=== PATIENT | male | born 1935 | race Caucasian/White ===

== ENCOUNTER 2018-05-13 09:08 | Emergency (ER) | payer OTHER ==
[~2018-05-13] VITALS: Ht 182.9 cm; Wt 91.5 kg
[2018-05-13 09:11] VITALS: Ht 182.9 cm; Wt 91.5 kg
[2018-05-13] MEDS ORDERED: SOD CHLORIDE 0.9% 1,000 ML IV STA (09:27)
[2018-05-13] MEDS ORDERED: ASPI325T32 PO (10:53)
--- NOTE | 2018-05-13 10:57 | ERD ---
ER Documentation Chief Complaint Chief Complaint Sent from MD for eval weakness, HPI This is a 82-year-old male who was sent by his primary for evaluation. The patient tells me that he has had 3-4 months of slight ataxia. He says that when he is standing up he feels slightly off balance and when he walks he has to be careful because he feels slight movement of the room/poor balance. He has had no fall. He has no focal neurological complaints of numbness weakness speech change visual change or difficulty swallowing. Patient says he feels at baseline is here just to get checked out. ROS All systems reviewed and are negative except as per history of present illness. Medications Home Meds Active Scripts Aspirin* (Aspirin* EC) 325 Mg Tab, 325 MG PO DAILY, #30 TAB Prov:NGOC COE DO 05/13/18 Allergies Allergies: Coded Allergies: No Known Allergy (Unverified , 05/13/18) PMhx/Soc History of Surgery: Yes ( left eye surgery; right foot surgery) Hx Cardiac Disorders: Yes (diabetes mellitus; high cholesterol) Hx Miscellaneous Medical Probl: Yes Hx Alcohol Use: Yes (used to drinkm alcohol) Hx Substance Use: No Hx Tobacco Use: No Smoking Status: Never smoker FmHx Family History: No coronary disease Physical Exam Vitals Vital Signs Date Temp Pulse Resp B/P (MAP) Pulse Ox O2 O2 Flow FiO2 Time Delivery Rate 05/13/18 68 18 150/83 100 Room Air 09:59 (105) 05/13/18 97.1 95 20 134/73 98 09:11 (93) Physical Exam Const: Well-developed, well-nourished Head: Atraumatic, normocephalic Eyes: Normal Conjunctiva, PERRLA, EOMI, normal sclera, no nystagmus ENT: Normal External Ears, Nose and Mouth, moist mucus membranes. Neck: Full range of motion. No meningismus, no lymphadenopathy. Resp: Clear to auscultation bilaterally, no wheezing, rhonchi, rales Cardio: Regular rate and rhythm, no murmurs, S1 S2 present Abd: Soft, non tender x 4, non distended. Normal bowel sounds, no guarding or rebound, no pulsitile abdominal masses or bruits Skin: No petechiae or rashes, no ecchymosis , no maculopapular rash Back: No midline or flank tenderness Ext: No cyanosis, or edema, FROM x 4, normal inspection, neurovascularly intact x 4 Neur: Awake and alert, STR 5/5 x 4, sensation intact x 4, no focal findings, cerebellum intact, ambulating at baseline with slight shuffling like gait Psych: Normal Mood and Affect Result Diagram: 05/13/18 0937 05/13/18 0937 Results 24 hrs Laboratory Tests Test 05/13/18 09:37 White Blood Count 6.6 10^3/ul Red Blood Count 4.19 10^6/ul Hemoglobin 12.9 g/dl Hematocrit 38.6 % Mean Corpuscular Volume 92.1 fl Mean Corpuscular Hemoglobin 30.8 pg Mean Corpuscular Hemoglobin Concent 33.4 g/dl Red Cell Distribution Width 14.6 % Platelet Count 205 10^3/UL Mean Platelet Volume 10.3 fl Immature Granulocytes % 0.300 % Neutrophils % 68.8 % Lymphocytes % 20.2 % Monocytes % 8.7 % Eosinophils % 1.7 % Basophils % 0.3 % Nucleated Red Blood Cells % 0.0 /100WBC Immature Granulocytes # 0.020 10^3/ul Neutrophils # 4.5 10^3/ul Lymphocytes # 1.3 10^3/ul Monocytes # 0.6 10^3/ul Eosinophils # 0.1 10^3/ul Basophils # 0.0 10^3/ul Nucleated Red Blood Cells # 0.0 10^3/ul Prothrombin Time 12.4 Sec Prothrombin Time Ratio 1.0 INR International Normalized Ratio 0.91 Activated Partial Thromboplast Time 28.2 Sec Sodium Level 142 mmol/L Potassium Level 4.0 mmol/L Chloride Level 103 mmol/L Carbon Dioxide Level 28 mmol/L Anion Gap 11 Blood Urea Nitrogen 14 mg/dl Creatinine 0.89 mg/dl Est Glomerular Filtrat Rate mL/min mL/min Glucose Level 136 mg/dl Calcium Level 9.4 mg/dl Current Medications Medications Dose Sig/Tino Start Time Status Last (Trade) Ordered Route PRN Stop Time Admin Dose Reason Admin Sodium 1,000 ml @ Q1H STAT 05/13/18 DC 05/13/18 Chloride 1,000 mls/hr IV 09: 09:45 05/13/18 10:26 Procedures/MDM Ordering MD: NGOC COE DO Location: E/R Room/Bed: PROCEDURE: CT Brain without contrast. CLINICAL INDICATION: Headache TECHNIQUE: A CT of the brain was performed on a multidetector CT scanner utilizing axial imaging from the skull base through the vertex without IV contrast. Multiplanar reformatted images were made. Images were reviewed on a PACS workstation. The CTDIvol is 39 mGy and the DLP is 634 mGycm. DICOM images are available. One or more of the following dose reduction techniques were utilized: 1.) Automated exposure control 2.) Adjustment of the mA +/- kV according to patient's size 3.) Use of iterative reconstruction technique. COMPARISON: None FINDINGS: There is moderate to severe diffuse cerebral volume loss with sulcal and ventricular dilatation. No discrete extra-axial fluid collection or mass. The ventricles are in the midline and of normal configuration. There is encephalomalacia on the inferior aspect of both frontal lobes likely related to prior trauma. Small chronic lacunar infarcts are seen in the basal ganglia. Periventricular white matter disease is seen in both cerebral hemispheres with no associated mass effect. There is preservation of normal rondon-white differentiation. No intracranial hemorrhage is seen. Vascular calcifications are seen. There is normal aeration of the visualized paranasal sinuses. IMPRESSION: Atrophy. 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 Sma ll bilateral basal ganglia lacunar infarcts. Bifrontal encephalomalacia likely related to prior trauma. No intracranial hemorrhage, mass or evidence of acute transcortical infarct. .Tavo Dimas MD MD Date Time Electronically viewed and signed by .Tavo Dimas MD, on 05/13/2018 10:00 .A/ CC: NGOC COE DO [id number] Patient shows diffuse microvascular changes of bilateral basal ganglial infarcts that are old. This could be causing the patient's symptoms however I did tell him he needs to get an MRI and follow-up with neurology Patient feels much better at this time, and vital signs are normal, symptoms have improved. I did give strict instructions to return to the ED if symptoms continue or worsen, patient will otherwise follow-up with primary care physician. Patient understood instructions and agreed to plan. Disclaimer: Inadvertent spelling and grammatical errors are likely due to EHR/dictation software use and do not reflect on the overall quality of patient care. Also, please note that the electronic time recorded on this note does not necessarily reflect the actual time of the patient encounter. Departure Diagnosis: Primary Impression: CVA, old, ataxia Condition: Stable Patient Instructions: Dean Hutchinson APOSTOLOS A. DO May 13, 2018 10:57
[2018-05-13 11:39] VITALS: BP 156/87; PULSE 72; RESP 19
[2018-05-17] MEDS ORDERED: ATOR40TA68 PO (17:54)
[2018-05-17] MEDS ORDERED: SITA100T11 PO (17:55)
[2018-05-17] MEDS ORDERED: FINA5TAB4 PO (17:55)
[2018-05-17] MEDS ORDERED: METF500T24 PO (17:55)
[2018-05-17] MEDS ORDERED: LISI10TA2 PO (17:56)
[2018-05-17] MEDS ORDERED: TAMS0.4C2 PO (17:56)
[2018-05-17] MEDS ORDERED: TRA100 PO (17:57)
[2018-05-17] MEDS ORDERED: IBUP-1542 PO (18:05)
== END 2018-05-13 11:39 | disposition home or self-care (01) ==
LOC: E/R 09:08
DX: I69.393 Ataxia following cerebral infarction (principal); E11.9 Type 2 diabetes mellitus without complications; R51 Headache
CPT/HCPCS: 36415; 70450; 80048; 85025; 85610; 85730; 99285; J7030